=== PATIENT | male | born 1970 | race Caucasian/White ===

== ENCOUNTER 2024-08-04 22:30 | Emergency (ER) | payer OTHER, SELFPAY ==
[2024-08-04 22:32] VITALS: BP 134/85
--- NOTE | 2024-08-04 23:27 | ED.GENMED ---
History of Present Illness
General
Chief Complaint: Musculo-Skeletal Complaint
Source: patient
Time Seen by Provider: 08/04/24 23:11
History of Present Illness
History of Present Illness:
53-year-old man presents to the emergency room complaining of pain in his left heel. Patient states he injured the left foot 3 weeks ago when [place]. Patient denies any new injuries. He is wearing a hard sole shoe. Patient is primarily requesting something to eat. Suspect he is homeless.
Past History
Past History
ED Past Medical History: Other (Crohn's, Anemia, Hiatal Hernia, DVT, Hep C, Liver cirrohosis, IVDA)
ED Past Surgical History: Bowel resection (X3 for Crohn's), Orthopedic (Laminectomy L4-S5, L5-S1) and Other (bowel resections)
Social History
Tobacco: Smoker
Alcohol: None
Drug: IVDA
Personal: Single
Living: with family
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
Family History
Family History: Other (Hypertension, diabetes, coronary artery disease)
Phy Exam
Physical Exam
Physical Exam:
General: Sleepy but arousable. No acute distress but appears chronically ill and unkept
Vitals: unremarkable
Head: Atraumatic
Eyes: Pupils equal, EOMI
Throat: Airway intact, no exudates
Neck: Trachea midline
Lungs: Clear and equal b/l
Heart: Bradycardic, regular rate, no murmurs
Neuro: Nonfocal
Skin: Warm, dry, no rash
Extremities: pulses equal b/l, mild edema and erythema of legs bilaterally though he does appear to have some chronic venous stasis. There are chronic wounds right left lower leg however this is not the area of complaint today.
Course
Orders/Labs/Results
Orders:
Orders
08/04/24 22:39
EKG [Electrocardiogram (*1)] Urgent
Reason for Study: Abnormal EKG
EKG- Treatment ONCE
Vital Signs
Initial and Last Documented VS:
Initial Vital Signs
Pulse Resp BP Pulse Ox
41 18 134/85 99
08/04/24 22:32 08/04/24 22:32 08/04/24 22:32 08/04/24 22:32
Last Documented Vital Signs
Pulse Resp BP Pulse Ox
41 18 134/85 99
08/04/24 22:32 08/04/24 22:32 08/04/24 22:32 08/04/24 22:32
MDM/Problems Addressed
Differential Diagnosis Includes:
Chronic foot pain
MDM/Problems Addressed:
Patient presents complaining of foot pain. He felt better after a lunch box. No workup indicated at this time. Patient stable for discharge
*Pulse Oximetry
Patient hypoxic: no
*Critical Care Note
Total Time (30-74mins, 75-104mins- exclusive of procedures): Not Applicable
ED Attending Note
-
Portions of this chart may have been created with voice recognition software.� Occasional wrong word or��sound alike� substitutions may have occurred due to the inherent limitations of voice recognition software.
Discharge Plan
Departure
Patient Disposition: Home (Routine Discharge)
Date of Disposition: 08/05/24
Time of Disposition: 00:36
Patient with high blood pressure during this ER visit?: No
Condition: Good
Discharge Problem:
Heel pain
Instructions: Heel or foot fracture
Prescriptions:
No Action
loperamide 2 MG capsule
2 mg PO PRN PRN (Reason: diarrhea)
fluoxetine [Prozac] 20 MG capsule
60 mg PO DAILY
fiyukom-rexigbyncubmg-ghvfvcqc [Excedrin Migraine] 1 TABLET tablet
1 tab PO DAILYPRN PRN (Reason: migraine)
albuterol sulfate 1 PUFF HFA aerosol inhaler
2 puff inhalation R Q4HPRN PRN (Reason: SOB) Qty: 1 0RF
pantoprazole 20 MG tablet,delayed release (DR/EC)
40 mg PO DAILY
alprazolam 2 MG tablet
2 mg PO BID
Patient Comments:
morphine 15 MG tablet
30 mg PO TIDPRN PRN (Reason: pain)
fentanyl 50 MCG patch 72 hour
50 mcg transdermal Q48H
promethazine 25 MG tablet
25 mg PO BID
Patient Comments:
11/28/16 per pharmacy tidprn but patient says he takes one tablet bid
umeclidinium [Incruse Ellipta] 62.5 MCG blister with device
2 puff inhalation DAILY
ferrous sulfate [FeroSul] 325 MG tablet
325 mg PO BID 0RF
levofloxacin 500 MG tablet
500 mg PO DAILY Qty: 7 0RF
Rx Instructions:
continue for 7 days
Referrals:
UNKNOWN - PT NOT,INTERVIEWE [Unknown Provider] -
Interventions
Interventions:
*Risk Screen - Suicide Last Done: 08/04/24 22:32
*General Assessment Last Done: 08/04/24 22:32
*Neglect/Abuse Screening Last Done: 08/04/24 22:32
*ED- Fall Risk Assessment Last Done: 08/04/24 22:32
*ED COVID-19 Vaccine History Last Done: 08/04/24 22:32
*Nursing Disposition Last Done: 08/05/24 01:03
ED-Musculoskeletal Assessment Last Done: 08/05/24 00:43
Discharge Date and Time
Discharge Date/Time: 08/05/24 01:05
Print Language: ITALIAN
--- NOTE | 2024-08-04 23:53 | EDRN ---
Patient provided with a lunchbox and warm blanket
--- NOTE | 2024-08-05 00:57 | EDRN ---
Patient was bale to eat turkey sandwich and transfer himself into a wheelchair without difficulty to go out to the waiting room.
== END 2024-08-05 01:05 | disposition home or self-care (01) ==
LOC: EMR 22:30
PROVIDERS: EMERGENCY PHYSICIAN Emergency Medicine; FAMILY PHYSICIAN Family Medicine
DX: M79.672 Pain in left foot (principal); K50.90 Crohn's disease, unspecified, without complications; D64.9 Anemia, unspecified; K44.9 Diaphragmatic hernia without obstruction or gangrene; F17.200 Nicotine dependence, unspecified, uncomplicated; Z82.49 Family history of ischemic heart disease and other diseases of the circulatory system; Z83.3 Family history of diabetes mellitus; Z86.19 Personal history of other infectious and parasitic diseases; Z86.718 Personal history of other venous thrombosis and embolism
CPT/HCPCS: 99283; 93005